=== PATIENT | male | born 1940 | race Caucasian/White ===

== ENCOUNTER 2019-12-14 15:07 | Outpatient (CLI) | payer MEDICARE ==
--- NOTE | 2019-12-14 15:22 | RAD ---
EXAM: Chest 2 views: HISTORY: Pneumonia COMPARISON: None. FINDINGS: There is a normal-sized cardiomediastinal silhouette. The patient is status post sternotomy. There is no evidence of consolidation, mass, or pleural effusion. The patient is status post left shoulder arthroplasty. Degenerative changes are seen in the spine. IMPRESSION: No evidence of acute cardiopulmonary disease
== END 2019-12-14 15:08 | disposition home or self-care (01) ==
LOC: MADRAD 15:07
PROVIDERS: ATTEND Family Medicine
DX: J18.9 Pneumonia, unspecified organism (principal)
CPT/HCPCS: 71046